=== PATIENT | male | born 1950 | race Caucasian/White ===

== ENCOUNTER 2017-06-05 12:18 | Emergency (ER) | payer MEDICARE ==
[~2017-06-05] VITALS: Ht 177.8 cm; Wt 77.1 kg
[2017-06-05] MEDS ORDERED: HYDR25TA4 PO (12:29)
[2017-06-05] MEDS ORDERED: LISI40TA4 PO (12:29)
[2017-06-05] MEDS ORDERED: AMLO5TAB2 PO (12:29)
[2017-06-05] MEDS ORDERED: BUPR1FIL3 SL (12:29)
--- NOTE | 2017-06-05 12:35 | NUR ---
MSE DONE AT BEDSIDE BY DR SALCEDO
[2017-06-05] MEDS ORDERED: TDAP DIPH,PERTUSS,TET VAC/PF 0.5 ML DISP.SYRIN IM ONE ×2 (12:45→13:03)
[2017-06-05 13:17] VITALS: BP 143/78
--- NOTE | 2017-06-05 13:17 | NUR ---
Patient discharged to home in stable conditon. Written and verbal after care instructions given. Patient verbalizes understanding of instructions.
== END 2017-06-05 13:18 | disposition home or self-care (01) ==
LOC: ER 12:21
DX: M79.89 Other specified soft tissue disorders (principal); M79.642 Pain in left hand; I10 Essential (primary) hypertension
CPT/HCPCS: 73130; 90715; A4663